=== PATIENT | female | born 1960 | race Caucasian/White ===

== ENCOUNTER 2017-08-08 22:25 | Emergency (ER) | payer OTHER ==
[~2017-08-08] VITALS: Ht 157.5 cm; Wt 52.2 kg
[~2017-08-08 22:25] MED LIST: COZAAR25 MG PO; HYZAAR 100-251 UDTAB; INDERAL1 MG/M1 IV; VISTARIL50 MG PO
[2017-08-09] MEDS ORDERED: ZANTAC300 MG PO (06:11)
[2017-08-09] MEDS ORDERED: INTESTINEX680 M1 PO (06:11)
== END 2017-08-09 06:23 | disposition home or self-care (01) ==
LOC: ER 22:25
DX: K52.89 Other specified noninfective gastroenteritis and colitis (principal)

== ENCOUNTER 2019-09-11 11:50 | Emergency (ER) | payer OTHER ==
[~2019-09-11] VITALS: Ht 154.9 cm; Wt 52.2 kg
[~2019-09-11 11:50] MED LIST changes: +INTESTINEX680 M1 PO; +ZANTAC300 MG PO
[2019-09-11] MEDS ORDERED: NORVASC5 MG (12:01)
[2019-09-11] MEDS ORDERED: VISTARIL25 MG (12:01)
[2019-09-11] MEDS ORDERED: CARDURA1 MG (12:01)
== END 2019-09-11 14:27 | disposition home or self-care (01) ==
LOC: ER 11:50
DX: B34.9 Viral infection, unspecified (principal); R07.0 Pain in throat; R19.7 Diarrhea, unspecified; Z03.818 Encounter for observation for suspected exposure to other biological agents ruled out

== ENCOUNTER 2020-02-18 08:02 | Emergency (ER) | payer OTHER ==
[~2020-02-18] VITALS: Ht 154.9 cm; Wt 52.2 kg
[~2020-02-18 08:02] MED LIST changes: +CARDURA1 MG; +NORVASC5 MG; +VISTARIL25 MG
[2020-02-18] MEDS ORDERED: AVALIDE 300-121 EACH PO (08:11)
== END 2020-02-18 10:37 | disposition home or self-care (01) ==
LOC: ER 08:02
DX: B34.9 Viral infection, unspecified (principal); Z03.818 Encounter for observation for suspected exposure to other biological agents ruled out

== ENCOUNTER 2020-11-18 12:39 | Emergency (ER) | payer OTHER ==
[~2020-11-18] VITALS: Ht 154.9 cm; Wt 53.1 kg
[~2020-11-18 12:39] MED LIST changes: +AVALIDE 300-121 EACH PO
[2020-11-18] MEDS ORDERED: ULTRACET PO (16:22)
[2020-11-20] MEDS ORDERED: INDERAL PO (14:20)
[2020-11-20] MEDS ORDERED: VISTARIL25 MG PO (14:20)
[2020-11-20] MEDS ORDERED: CARDURA PO (14:21)
== END 2020-11-18 17:24 | disposition home or self-care (01) ==
LOC: ER 12:39
DX: S52.512A Displaced fracture of left radial styloid process, initial encounter for closed fracture (principal); W18.39XA Other fall on same level, initial encounter; Y93.89 Activity, other specified; Y92.89 Other specified places as the place of occurrence of the external cause; Y99.8 Other external cause status

== ENCOUNTER → 2020-11-21 | Day surgery (SDC) | payer OTHER ==
[~2020-11-21] MED LIST changes: +CARDURA PO; +INDERAL PO; +ULTRACET PO; +VISTARIL25 MG PO
== END | disposition home or self-care (01) ==
LOC: CIR.AMB 09:51
PROVIDERS: ATTEND Orthopaedic Surgery
DX: S52.592A Other fractures of lower end of left radius, initial encounter for closed fracture (principal); Z20.822 Contact with and (suspected) exposure to COVID-19
CPT/HCPCS: 25609; C1776; 20902

== ENCOUNTER 2021-02-09 09:00 | Outpatient (CLI) | payer OTHER | END 2021-02-09 09:05 | disposition home or self-care (01) | LOC: PPH VACUNA 09:00 | PROVIDERS: ATTEND Emergency Medicine Pediatric Emergency Medicine | DX: Z23 Encounter for immunization (principal) ==

== ENCOUNTER 2021-12-08 08:10 | Outpatient (CLI) | payer OTHER | END 2021-12-08 08:11 | disposition home or self-care (01) | LOC: MAMO-SONO 08:10 → NUCLEAR 10:30 | PROVIDERS: ATTEND Obstetrics & Gynecology | DX: Z12.31 Encounter for screening mammogram for malignant neoplasm of breast (principal); N60.11 Diffuse cystic mastopathy of right breast; N60.12 Diffuse cystic mastopathy of left breast ==

== ENCOUNTER 2021-12-08 09:47 | Outpatient (CLI) | payer OTHER | END 2021-12-08 09:48 | disposition home or self-care (01) | LOC: NUCLEAR 09:47 | PROVIDERS: ATTEND Obstetrics & Gynecology | DX: M81.0 Age-related osteoporosis without current pathological fracture (principal) ==

== ENCOUNTER 2024-05-19 15:39 | Emergency (ER) | payer OTHER ==
[~2024-05-19] VITALS: Ht 154.9 cm; Wt 52.2 kg
[2024-05-19] MEDS ORDERED: KETOROLAC TROMETHAMINE 60 MG VIAL IM ONE ×2 (17:00→17:01)
[2024-05-19] MEDS ORDERED: DEXAMETHASONE SODIUM PHOSPHATE 4 MG/ML VIAL IM ONE (17:00)
[2024-05-19] MEDS ORDERED: DEXAMETHASONE SODIUM PHOSPHATE 4 MG/ML VIAL ONE (17:01)
== END 2024-05-19 19:00 | disposition left against medical advice (07) ==
LOC: ER 15:42
DX: S92.152A Displaced avulsion fracture (chip fracture) of left talus, initial encounter for closed fracture (principal); W18.39XA Other fall on same level, initial encounter; Y93.89 Activity, other specified; Y92.89 Other specified places as the place of occurrence of the external cause; S93.492A Sprain of other ligament of left ankle, initial encounter

== ENCOUNTER 2024-11-29 08:58 | Outpatient (CLI) | payer OTHER | END 2024-11-29 09:06 | disposition home or self-care (01) | LOC: TOM 08:58 | PROVIDERS: ATTEND Specialist | DX: I11.9 Hypertensive heart disease without heart failure (principal); I31.39 Other pericardial effusion (noninflammatory) | CPT/HCPCS: 71260; Q9965 ==